=== PATIENT | female | born 1960 | race Native Hawaiian/Other Pacific Islander ===

== ENCOUNTER 2017-04-15 12:57 | Day surgery (SDC) | payer OTHER | END 2017-04-15 17:36 | disposition home or self-care (01) | LOC: OR 12:57 → EDSEX 12:57 → OR 14:00 | PROC: 0DB68ZZ Excision of Stomach, Via Natural or Artificial Opening Endoscopic (ICD-10-PCS; principal; 2017-04-15) | PROC: 0DB88ZZ Excision of Small Intestine, Via Natural or Artificial Opening Endoscopic (ICD-10-PCS; 2017-04-15) | PROC: 0D758ZZ Dilation of Esophagus, Via Natural or Artificial Opening Endoscopic (ICD-10-PCS; 2017-04-15) | DX: K22.10 Ulcer of esophagus without bleeding (principal); K22.2 Esophageal obstruction; K29.00 Acute gastritis without bleeding; R10.11 Right upper quadrant pain; R13.10 Dysphagia, unspecified; R10.13 Epigastric pain; K21.0 Gastro-esophageal reflux disease with esophagitis | CPT/HCPCS: J2001; J2704 ==

== ENCOUNTER 2017-12-07 13:33 | Outpatient (CLI) | payer OTHER | END 2017-12-07 21:43 | disposition home or self-care (01) | LOC: RAD 13:33 | DX: C44.629 Squamous cell carcinoma of skin of left upper limb, including shoulder (principal) ==

== ENCOUNTER 2020-05-14 09:52 | Outpatient (CLI) | payer OTHER | END 2020-05-14 19:01 | disposition home or self-care (01) | LOC: MAMMO 09:52 | PROVIDERS: ATTEND Internal Medicine | DX: Z12.31 Encounter for screening mammogram for malignant neoplasm of breast (principal) ==

== ENCOUNTER 2022-07-29 09:40 | Outpatient (CLI) | payer OTHER | END 2022-07-29 19:13 | disposition home or self-care (01) | LOC: MAMMO 09:40 | PROVIDERS: ATTEND Internal Medicine | DX: Z12.31 Encounter for screening mammogram for malignant neoplasm of breast (principal) ==